=== PATIENT | female | born 1975 | race Caucasian/White ===

== ENCOUNTER 2017-12-18 09:16 | Emergency (ER) | payer OTHER ==
[~2017-12-18] VITALS: Ht 160 cm; Wt 83.9 kg
[~2017-12-18 09:16] MED LIST: CLARITHROMYCIN250 M1 PO; XALATAN2.5 ML OU; ZOFRAN ODT4 M1 SL
--- NOTE | 2017-12-18 10:38 | ED UPPER/LOWER EXTREMITY COMPL ---
History of Present Illness General Chief Complaint: Shoulder Injury Stated Complaint: SHOOTING PAIN,SHOULDER TO LEFT ARM/NECK,X 1 MONTH Source: patient Exam Limitations: no limitations Vital Signs & Intake/Output Vital Signs & Intake/Output Vital Signs Date Time Temp Pulse Resp B/P B/P Pulse O2 O2 Flow FiO2 Mean Ox Delivery Rate 12/18 0921 97.8 92 18 144/96 98 Room Air Allergies Coded Allergies: Penicillins (RASH 11/01/17) Reconcile Medications Cyclobenzaprine HCl 10 MG TABLET 1 TAB PO Q8P spasms Hydrocodone/Acetaminophen (Rankin 5-325 Tablet) 5 MG-325 MG TABLET 1 TAB PO Q6 pain Ketorolac Tromethamine 10 MG TABLET 1 TAB PO Q6P PRN SHOULDER PAIN PATIENT RECEIVED im KETOROLAC IN THE EMERGENCY DEPARTMENT Triage Note: PT FROM HOME C/O LEFT SHOULDER/ ARM PAIN X1 MONTH. 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 PT STATES SHE FEELS BETTER TO REST PTS HEAD TO THE RIGHT. PT HAS FULL ROM OF LEFT ARM. PT STATES NERVE PAIN TRAVELS DOWN THE LEFT ARM. NO DISTRESS NOTED IN TRIAGE. PT STATES ROTATING TYLENOL AND MOTRIN WITH NO RELIEF. VSS. Triage Nurses Notes Reviewed? yes : No Patient currently breastfeeds: No HPI: Patient presents for evaluation of left shoulder pain that has been more or less constant but getting worse over the past month. Patient doesn't recall any specific injury but feels that given her occupation is very possible that she injured herself about a month ago. The pain has been gradual in onset but is progressively getting worse. It is worse with movement and palpation. She describes it as a severe pulling in the back of the neck and around the left shoulder blade. She also gets occasional muscle spasms. She has been alternating ibuprofen with Tylenol without much improvement. Her last dose of ibuprofen was last night. She will get pain radiating down into the left upper extremity. Past History Travel History Traveled to [place] past 21 day No Medical History Any Pertinent Medical History? see below for history Neurological: NONE EENT: RETINA DETACHMENT Cardiovascular: NONE Respiratory: NONE Gastrointestinal: NONE Hepatic: NONE Renal: NONE Musculoskeletal: NONE Psychiatric: NONE Endocrine: NONE Blood Disorders: NONE Cancer(s): NONE POLLS OR SURVEYS INTERVIEWER/Reproductive: NONE Surgical History Surgical History: non-contributory Psychosocial History What is your primary language Maori Tobacco Use: Quit >30 days ago Family History Hx Contributory? No Review of Systems Review of Systems Constitutional: Reports: no symptoms. EENTM: Reports: no symptoms. Respiratory: Reports: no symptoms. Cardiovascular: Reports: no symptoms. Gastrointestinal/Abdominal: Reports: no symptoms. Genitourinary: Reports: no symptoms. Musculoskeletal: Reports: see HPI. Skin: Reports: no symptoms. Neurological/Psychological: Reports: no symptoms. Hematologic/Endocrine: Reports: no symptoms. Immunological: Reports: no symptoms. All Other Systems: Reviewed and Negative Physical Exam Physical Exam General Appearance: SEE BELOW Comments: Gen.: Well-nourished, well-developed, no acute respiratory distress. Head: Normocephalic, atraumatic. Eyes: Normal inspection bilaterally Ears: Normal inspection bilaterally Nose: Normal inspection Throat/mouth : Moist mucosa Neck: Supple, full range of motion, no goiter, mild tenderness over C6-C7 without associated ecchymoses and soft tissue swelling or erythema. No inducible radiculopathy. Heart: Regular rate and rhythm Lungs: Quiet respirations Back: Normal range of motion Extremities: Left upper extremity: Tenderness over the left acromioclavicular joint and left trapezius. There is no associated soft tissue swelling or ecchymoses. Left upper extremity deep tendon reflexes sensation and distal pulses intact. Patient's pain worsens with abduction of the left shoulder and with extension. Hand grasp is normal to left hand. Neurologic: Cranial nerves grossly intact, speech is clear Skin: warm and dry Psychiatric: Calm, cooperative, no apparent delusions or hallucinations Progress Differential Diagnosis: STRAIN, NECK STRAIN, CERVICAL RADICULOPATHY, CONNECTIVE TISSUE DISEASE, AUTOIMMUNE DISEASE Plan of Care: Orders Procedure Date/time Status XRY-SHOULDER COMPLETE-LEFT 12/18 1038 Active XRY-CERV SPINE 4 OR 5 VIEWS 12/18 1038 Active Comments: 12/18/2017 12:13:43 PM I have reviewed Sammi's x-rays and I see no acute fractures dislocations or other significant findings. I have updated her. Plan anti-inflammatory, muscle relaxer, pain reliever and orthopedic follow-up. Departure Departure Disposition: HOME OR SELF CARE Condition: Stable Clinical Impression Primary Impression: Muscle spasm of left shoulder Referrals: Jessee Arshad MD (PCP/Family) Additional Instructions: Ketorolac and Flexeril as needed for your muscle pain. Add Rankin if necessary. Follow-up with Dr. Douglas of [facility] in one week if not improving. Return if any concerns or sudden worsening. Please note that there might be incidental findings in your evaluation that are unrelated to the current emergency department visit. Please notify your primary care doctor about this emergency department visit in order to obtain and review all of the testing performed so that these incidental findings can be monitored as needed. If you had an x-ray performed, please understand that some fractures may not be seen on the initial set of x-rays. If your symptoms persist you might need a repeat set of x-rays to check for such a fracture. If you had a laceration evaluated, please understand that foreign bodies such as glass or wood may not be visible to the naked eye or on plain x-rays. If the wound becomes red, swollen, increasingly more painful or if there is any drainage from the wound, please have it reevaluated by a physician for the possibility of a retained foreign body. If you're unable to follow up as outlined in the discharge instructions please return to the emergency department. Thank you for choosing the [facility] for your care. It was a pleasure to serve you today. Ravi Polanco M.D. [facility] Departure Forms: Customer Survey General Discharge Information Prescriptions: Current Visit Scripts Ketorolac Tromethamine 1 TAB PO Q6P PRN SHOULDER PAIN #16 TAB PATIENT RECEIVED im KETOROLAC IN THE EMERGENCY DEPARTMENT Cyclobenzaprine HCl 1 TAB PO Q8P #21 TAB Hydrocodone/Acetaminophen (Rankin 5-325 Tablet) 1 TAB PO Q6 #6 TAB
[2017-12-18] MEDS ORDERED: KETOROLAC TROME10 M1 PO (12:20)
[2017-12-18] MEDS ORDERED: CYCLOBENZAPRINE10 M1 PO (12:20)
[2017-12-18] MEDS ORDERED: NORCO 5-325 TA1 EACH PO (12:20)
[2017-12-18 12:24] VITALS: BP 134/84
--- NOTE | 2017-12-18 12:29 | RADIOLOGY REPORT ---
EXAMINATION: CR C-SPINE. CR LEFT SHOULDER. CLINICAL INFORMATION: Left shoulder and arm pain. Presumptive diagnosis of arthritis, degenerative disc disease, radiculopathy. COMPARISON: None TECHNIQUE: 5 views of the cervical spine. 4 views of the left shoulder. FINDINGS: Cervical spine: Slight reversal of the normal cervical lordosis is seen, suggesting muscle spasm versus patient positioning. Alignment is otherwise unremarkable. No acute fracture or dislocation is seen. Prevertebral soft tissues are normal in thickness. Craniocervical junction and atlantoaxial articulations are intact. Mild degenerative changes seen at the atlantoaxial articulation. There is minimal disc space narrowing and spurring seen at C5-C6 and C6-C7. Remainder of the disc space height is well-maintained. The neural foramina bilaterally are widely patent. Included lung apices and upper ribs are unremarkable. Left shoulder: Normal alignment. No acute fracture or dislocation. Glenohumeral joint and acromioclavicular joints are normal. No joint calcifications seen. Included left ribs are intact. IMPRESSION: 1. There may be subtle muscle spasm in the cervical spine versus changes related to patient positioning. 2. Mild degenerative changes at the atlantoaxial articulation and at C5-C6 and C6-C7. 3. No acute fracture in the cervical spine or left shoulder. 4. Left shoulder normal.
== END 2017-12-18 12:24 ==
LOC: ERH 09:16
DX: M62.838 Other muscle spasm (principal)
CPT/HCPCS: 72050; 73030-LT; 96372; J1885